=== PATIENT | male | born 1930 | race Caucasian/White ===

== ENCOUNTER 2019-05-01 16:57 | Observation (INO) ==
[2019-05-01] MEDS ORDERED: Isovue-370 500 ML BOTTLE IVP ONE (17:45)
[2019-05-01 18:22] LABS: Bilirubin,Urine Small (Negative); Blood,Urine Trace (Negative); Clarity,Urine Cloudy (Clear); Color,Urine Yellow (Yellow); Glucose,Urine (UA) Normal (Normal); Ketones,Urine Trace mg/dL (Negative); Leukocyte Esterase,Urine Negative (Negative); Nitrite,Urine Negative (Negative); Protein,Urine Trace mg/dL (Neg-Trace); Urobilinogen,Urine Normal (Normal)
[2019-05-01 18:23] LABS: Bacteria,Urine None Seen per hpf (None-Few); Hyaline Casts,Urine None Seen per lpf (None-Few); Squamous Epithelial Cell,Urine Moderate per lpf (None-Few); WBC,Urine 0-3 per hpf (0-3)
[2019-05-01 18:39] LABS: Basophils % 0.2 %; Eosinophils # 0.1 K/mcL (0.0-0.6); Eosinophils % 0.8 %; Hematocrit 41.3 % (37.5-50.1); Hemoglobin 14.5 g/dL (12.9-16.9); Immature Granulocytes % 0.6 % (0-4); Lymphocytes % 15.2 %; Mean Corpuscular HGB Conc 35.1 g/dL (31.6-35.5); Mean Corpuscular Hemoglobin 34.8 pg (28.0-33.3); Mean Platelet Volume 8.9 fL (9.4-12.4); Monocytes # 0.6 K/mcL (0.0-1.3); Monocytes % 8.7 %; Neutrophils # 4.8 K/mcL (1.6-8.9); Platelet Count 206 K/mcL (140-400); Red Blood Count 4.17 M/mcL (4.19-5.50); Red Cell Distribution Width 12.6 % (11.5-14.5); Segmented Neutrophils % 74.5 %; White Blood Count 6.5 K/mcL (4.3-11.1)
[2019-05-01 18:40] LABS: Mucus,Urine Few per lpf (Few)
[2019-05-01 18:59] LABS: BUN/Creatinine Ratio 18 (6-26); Blood Urea Nitrogen 25 mg/dL (8-23); Calcium 9.4 mg/dL (8.6-10.3); Carbon Dioxide 28 mEq/L (23-29); Chloride 106 mEq/L (98-107); Glucose 131 mg/dL (70-105); Magnesium 2.4 mg/dL (1.6-2.6); Osmolality,Calculated 300 (280-300); Sodium 142 mEq/L (136-145); Troponin I < 0.03 ng/mL (< 0.04); eGFR For African Americans 58 (> 60); eGFR For Non-African Americans 48 (> 60)
[2019-05-01] MEDS ORDERED: 0.9 % Sodium Chloride 1,000 ML IVC ONE (20:49)
[2019-05-01 21:22] LABS: Thyroid Stimulating Hormone 2.546 mcIU/mL (0.340-5.600)
[2019-05-02] MEDS ORDERED: Ondansetron ODT 4 MG TAB.RAPDIS SL PRN (02:04)
[2019-05-02] MEDS ORDERED: Acetaminophen 325 MG TABLET PO PRN (02:04)
[2019-05-02] MEDS ORDERED: Naloxone 0.4 MG/ML INJ IVP PRN (02:04)
[2019-05-02] MEDS ORDERED: 0.9 % Sodium Chloride 1,000 ML IVC SCH ×3 (02:15→13:30)
[2019-05-02 05:25] LABS: Basophils % 0.2 %; Eosinophils # 0.1 K/mcL (0.0-0.6); Eosinophils % 2.2 %; Hematocrit 41.4 % (37.5-50.1); Hemoglobin 14.3 g/dL (12.9-16.9); Immature Granulocytes % 0.2 % (0-4); Lymphocytes # 1.5 K/mcL (0.6-4.6); Lymphocytes % 25.3 %; Mean Corpuscular HGB Conc 34.5 g/dL (31.6-35.5); Mean Corpuscular Hemoglobin 35.4 pg (28.0-33.3); Mean Corpuscular Volume 102.5 fL (83.0-100.0); Mean Platelet Volume 9.1 fL (9.4-12.4); Monocytes # 0.5 K/mcL (0.0-1.3); Monocytes % 8.1 %; Neutrophils # 3.8 K/mcL (1.6-8.9); Platelet Count 189 K/mcL (140-400); Red Blood Count 4.04 M/mcL (4.19-5.50); Red Cell Distribution Width 12.6 % (11.5-14.5); White Blood Count 5.9 K/mcL (4.3-11.1)
[2019-05-02 05:46] LABS: BUN/Creatinine Ratio 17 (6-26); Blood Urea Nitrogen 20 mg/dL (8-23); Calcium 8.5 mg/dL (8.6-10.3); Carbon Dioxide 22 mEq/L (23-29); Chloride 110 mEq/L (98-107); Glucose 92 mg/dL (70-105); Osmolality,Calculated 292 (280-300); Sodium 140 mEq/L (136-145); eGFR For African Americans > 60 (> 60); eGFR For Non-African Americans 59 (> 60)
[2019-05-02 05:47] LABS: Troponin I < 0.03 ng/mL (< 0.04)
[2019-05-03 02:31] LABS: Basophils % 0.4 %; Eosinophils # 0.2 K/mcL (0.0-0.6); Eosinophils % 2.8 %; Hematocrit 39.6 % (37.5-50.1); Hemoglobin 13.7 g/dL (12.9-16.9); Immature Granulocytes % 0.2 % (0-4); Lymphocytes # 1.2 K/mcL (0.6-4.6); Lymphocytes % 22.8 %; Mean Corpuscular HGB Conc 34.6 g/dL (31.6-35.5); Mean Corpuscular Hemoglobin 34.7 pg (28.0-33.3); Mean Corpuscular Volume 100.3 fL (83.0-100.0); Mean Platelet Volume 9.7 fL (9.4-12.4); Monocytes # 0.4 K/mcL (0.0-1.3); Monocytes % 7.4 %; Neutrophils # 3.6 K/mcL (1.6-8.9); Platelet Count 193 K/mcL (140-400); Red Blood Count 3.95 M/mcL (4.19-5.50); Red Cell Distribution Width 12.5 % (11.5-14.5); Segmented Neutrophils % 66.4 %; White Blood Count 5.4 K/mcL (4.3-11.1)
[2019-05-03 02:48] LABS: BUN/Creatinine Ratio 16 (6-26); Blood Urea Nitrogen 19 mg/dL (8-23); Calcium 8.7 mg/dL (8.6-10.3); Carbon Dioxide 24 mEq/L (23-29); Chloride 105 mEq/L (98-107); Glucose 94 mg/dL (70-105); Osmolality,Calculated 288 (280-300); Potassium 3.7 mEq/L (3.5-5.1); Sodium 138 mEq/L (136-145); eGFR For African Americans > 60 (> 60); eGFR For Non-African Americans 56 (> 60)
[2019-05-03 10:53] VITALS: BP 149/86
== END 2019-05-03 14:18 | disposition home or self-care (01) ==
LOC: EMEROOARM 16:57 → 3BNU 16:57
PROVIDERS: ADMIT Internal Medicine; ATTEND Internal Medicine

== ENCOUNTER 2019-05-03 20:12 | Observation (INO) ==
[2019-05-03 21:00] LABS: INR 1.1; Prothrombin Time 12.3 Seconds (9.4-12.1)
[2019-05-03 21:03] LABS: Basophils % 0.2 %; Eosinophils # 0.1 K/mcL (0.0-0.6); Eosinophils % 1.1 %; Hematocrit 44.1 % (37.5-50.1); Hemoglobin 15.1 g/dL (12.9-16.9); Immature Granulocytes % 0.4 % (0-4); Mean Corpuscular HGB Conc 34.2 g/dL (31.6-35.5); Mean Corpuscular Hemoglobin 35.4 pg (28.0-33.3); Mean Corpuscular Volume 103.5 fL (83.0-100.0); Mean Platelet Volume 9.1 fL (9.4-12.4); Monocytes # 0.4 K/mcL (0.0-1.3); Monocytes % 7.7 %; Neutrophils # 3.9 K/mcL (1.6-8.9); Platelet Count 203 K/mcL (140-400); Red Blood Count 4.26 M/mcL (4.19-5.50); Red Cell Distribution Width 12.8 % (11.5-14.5); Segmented Neutrophils % 72.6 %; White Blood Count 5.3 K/mcL (4.3-11.1)
[2019-05-03 21:20] LABS: Bilirubin,Urine Negative (Negative); Blood,Urine Small (Negative); Clarity,Urine Clear (Clear); Color,Urine Yellow (Yellow); Glucose,Urine (UA) Normal (Normal); Ketones,Urine Negative (Negative); Leukocyte Esterase,Urine Negative (Negative); Nitrite,Urine Negative (Negative); PH,Urine 6.5 pH Units (5.0-8.0); Protein,Urine Negative (Neg-Trace); Specific Gravity,Urine 1.007 (1.010-1.025); Urobilinogen,Urine Normal (Normal)
[2019-05-03 21:21] LABS: Bacteria,Urine None Seen per hpf (None-Few); Hyaline Casts,Urine None Seen per lpf (None-Few); RBC,Urine 0-3 per hpf (0-3); Squamous Epithelial Cell,Urine Moderate per lpf (None-Few); WBC,Urine 0-3 per hpf (0-3)
[2019-05-03 21:32] LABS: Amphetamine Screen,Urine Negative ng/mL (Cutoff=1000); Barbiturate Screen,Urine Negative ng/mL (Cutoff=200); Benzodiazepines Screen,Urine Negative ng/mL (Cutoff=200); Cannabinoid Screen,Urine Negative ng/mL (Cutoff = 50); Cocaine Screen,Urine Negative ng/mL (Cutoff= 300); Opiate Screen,Urine Negative ng/mL (Cutoff=300); Phencyclidine Screen,Urine Negative ng/mL (Cutoff=25)
[2019-05-03 22:19] LABS: Alanine Aminotransferase 10 Units/L (7-52); Albumin 4.2 g/dL (3.5-5.7); Albumin/Globulin Ratio 1.6 (1.1-2.2); Alkaline Phosphatase 61 Units/L (34-104); Aspartate Amino Transferase 17 Units/L (13-39); BUN/Creatinine Ratio 13 (6-26); Bilirubin,Direct 0.1 mg/dL (0.0-0.2); Bilirubin,Indirect 0.6 mg/dL (0.0-1.0); Bilirubin,Total 0.7 mg/dL (0.3-1.0); Blood Urea Nitrogen 19 mg/dL (8-23); Calcium 9.5 mg/dL (8.6-10.3); Carbon Dioxide 25 mEq/L (23-29); Chloride 104 mEq/L (98-107); Ethanol < 10 mg/dL (Less than 10); Globulin 2.6 g/dL (2.4-3.5); Glucose 145 mg/dL (70-105); Osmolality,Calculated 289 (280-300); Potassium 3.8 mEq/L (3.5-5.1); Sodium 137 mEq/L (136-145); Total Protein 6.8 g/dL (6.4-8.9); Troponin I < 0.03 ng/mL (< 0.04); eGFR For African Americans 55 (> 60); eGFR For Non-African Americans 45 (> 60)
[2019-05-03] MEDS ORDERED: 0.9 % Sodium Chloride 1,000 ML IVC ONE (23:23)
[2019-05-04] MEDS ORDERED: Naloxone 0.4 MG/ML INJ IVP PRN (00:46)
[2019-05-04] MEDS ORDERED: 0.9 % Sodium Chloride 1,000 ML IVC SCH (01:00)
[2019-05-04 04:49] LABS: Hematocrit 40.8 % (37.5-50.1); Hemoglobin 13.8 g/dL (12.9-16.9); Mean Corpuscular HGB Conc 33.8 g/dL (31.6-35.5); Mean Corpuscular Hemoglobin 34.8 pg (28.0-33.3); Mean Corpuscular Volume 102.8 fL (83.0-100.0); Mean Platelet Volume 9.4 fL (9.4-12.4); Platelet Count 169 K/mcL (140-400); Red Blood Count 3.97 M/mcL (4.19-5.50); Red Cell Distribution Width 12.7 % (11.5-14.5); White Blood Count 5.7 K/mcL (4.3-11.1)
[2019-05-04 05:03] LABS: BUN/Creatinine Ratio 15 (6-26); Blood Urea Nitrogen 18 mg/dL (8-23); Calcium 8.5 mg/dL (8.6-10.3); Carbon Dioxide 24 mEq/L (23-29); Chloride 107 mEq/L (98-107); Glucose 101 mg/dL (70-105); Osmolality,Calculated 294 (280-300); Potassium 3.7 mEq/L (3.5-5.1); Sodium 141 mEq/L (136-145); eGFR For African Americans > 60 (> 60); eGFR For Non-African Americans 56 (> 60)
[2019-05-04 09:40] LABS: Folate 9.1 ng/mL (3.0-16.0)
[2019-05-04] MEDS ORDERED: Cyanocobalamin (B-12) 1,000 MCG/ML VIAL IM ONE (14:16)
[2019-05-04] MEDS: Folic Acid 1 MG TABLET PO SCH (14:43)
[2019-05-04] MEDS: *HR* Heparin 5,000 UNIT/ML VIAL SQ SCH (17:10)
[2019-05-05 04:47] LABS: Hematocrit 41.5 % (37.5-50.1); Hemoglobin 14.2 g/dL (12.9-16.9); Mean Corpuscular HGB Conc 34.2 g/dL (31.6-35.5); Mean Corpuscular Hemoglobin 35.1 pg (28.0-33.3); Mean Corpuscular Volume 102.5 fL (83.0-100.0); Mean Platelet Volume 9.5 fL (9.4-12.4); Platelet Count 189 K/mcL (140-400); Red Blood Count 4.05 M/mcL (4.19-5.50); Red Cell Distribution Width 12.7 % (11.5-14.5); White Blood Count 5.4 K/mcL (4.3-11.1)
[2019-05-05 04:59] LABS: BUN/Creatinine Ratio 14 (6-26); Blood Urea Nitrogen 16 mg/dL (8-23); Calcium 8.6 mg/dL (8.6-10.3); Carbon Dioxide 24 mEq/L (23-29); Chloride 108 mEq/L (98-107); Glucose 84 mg/dL (70-105); Osmolality,Calculated 288 (280-300); Potassium 3.9 mEq/L (3.5-5.1); Sodium 139 mEq/L (136-145); eGFR For African Americans > 60 (> 60); eGFR For Non-African Americans 59 (> 60)
[2019-05-05] MEDS: *HR* Heparin 5,000 UNIT/ML VIAL SQ SCH ×2 (06:01→16:48)
[2019-05-05] MEDS ORDERED: 0.9 % Sodium Chloride 1,000 ML IVC ONE ×2 (07:48→12:35)
[2019-05-05] MEDS: Folic Acid 1 MG TABLET PO SCH (08:26)
[2019-05-05] MEDS: Cyanocobalamin (B-12) 1,000 MCG TABLET PO SCH (08:26)
[2019-05-06 02:01] LABS: Basophils % 0.4 %; Eosinophils # 0.1 K/mcL (0.0-0.6); Eosinophils % 2.8 %; Hematocrit 38.7 % (37.5-50.1); Hemoglobin 13.3 g/dL (12.9-16.9); Immature Granulocytes % 0.2 % (0-4); Lymphocytes # 1.2 K/mcL (0.6-4.6); Lymphocytes % 24.1 %; Mean Corpuscular HGB Conc 34.4 g/dL (31.6-35.5); Mean Corpuscular Hemoglobin 35.1 pg (28.0-33.3); Mean Corpuscular Volume 102.1 fL (83.0-100.0); Mean Platelet Volume 9.3 fL (9.4-12.4); Monocytes # 0.4 K/mcL (0.0-1.3); Monocytes % 8.7 %; Neutrophils # 3.2 K/mcL (1.6-8.9); Platelet Count 183 K/mcL (140-400); Red Blood Count 3.79 M/mcL (4.19-5.50); Red Cell Distribution Width 12.6 % (11.5-14.5); Segmented Neutrophils % 63.8 %; White Blood Count 4.9 K/mcL (4.3-11.1)
[2019-05-06 02:24] LABS: BUN/Creatinine Ratio 12 (6-26); Blood Urea Nitrogen 14 mg/dL (8-23); Calcium 8.5 mg/dL (8.6-10.3); Carbon Dioxide 24 mEq/L (23-29); Chloride 110 mEq/L (98-107); Glucose 89 mg/dL (70-105); Osmolality,Calculated 290 (280-300); Potassium 3.9 mEq/L (3.5-5.1); Sodium 140 mEq/L (136-145); eGFR For African Americans > 60 (> 60); eGFR For Non-African Americans 58 (> 60)
[2019-05-06] MEDS: *HR* Heparin 5,000 UNIT/ML VIAL SQ SCH (05:20)
[2019-05-06] MEDS: Cyanocobalamin (B-12) 1,000 MCG TABLET PO SCH (09:01)
[2019-05-06] MEDS: Folic Acid 1 MG TABLET PO SCH (09:01)
[2019-05-06] MEDS: predniSONE 20 MG TABLET PO SCH (16:01)
[2019-05-07 02:58] LABS: Basophils % 0.4 %; Eosinophils # 0.1 K/mcL (0.0-0.6); Eosinophils % 2.7 %; Hematocrit 40.6 % (37.5-50.1); Hemoglobin 13.9 g/dL (12.9-16.9); Immature Granulocytes % 0.2 % (0-4); Lymphocytes # 1.2 K/mcL (0.6-4.6); Lymphocytes % 23.6 %; Mean Corpuscular HGB Conc 34.2 g/dL (31.6-35.5); Mean Corpuscular Volume 102.3 fL (83.0-100.0); Mean Platelet Volume 9.5 fL (9.4-12.4); Monocytes # 0.4 K/mcL (0.0-1.3); Monocytes % 7.2 %; Neutrophils # 3.4 K/mcL (1.6-8.9); Platelet Count 177 K/mcL (140-400); Red Blood Count 3.97 M/mcL (4.19-5.50); Red Cell Distribution Width 12.7 % (11.5-14.5); Segmented Neutrophils % 65.9 %; White Blood Count 5.2 K/mcL (4.3-11.1)
[2019-05-07 03:20] LABS: BUN/Creatinine Ratio 14 (6-26); Blood Urea Nitrogen 15 mg/dL (8-23); Calcium 9.2 mg/dL (8.6-10.3); Carbon Dioxide 26 mEq/L (23-29); Chloride 106 mEq/L (98-107); Glucose 89 mg/dL (70-105); Magnesium 2.2 mg/dL (1.6-2.6); Osmolality,Calculated 286 (280-300); Phosphorous 3.5 mg/dL (2.7-4.5); Potassium 3.8 mEq/L (3.5-5.1); Sodium 138 mEq/L (136-145); Troponin I < 0.03 ng/mL (< 0.04); eGFR For African Americans > 60 (> 60); eGFR For Non-African Americans > 60 (> 60)
[2019-05-07] MEDS: Folic Acid 1 MG TABLET PO SCH (08:06)
[2019-05-07] MEDS: predniSONE 20 MG TABLET PO SCH (08:06)
[2019-05-07] MEDS: Cyanocobalamin (B-12) 1,000 MCG TABLET PO SCH (08:06)
[2019-05-07] MEDS ORDERED: Cyanocobalamin (B-12) 1,000 MCG/ML VIAL IM ONE (09:00)
[2019-05-07] MEDS ORDERED: Sennosides/Docusate Sodium TABLET PO SCH (09:30)
[2019-05-07] MEDS ORDERED: Cosyntropin 250 MCG/2 ML VIAL IVP ONE (09:55)
[2019-05-07 12:22] VITALS: BP 120/67
== END 2019-05-07 14:07 | disposition home or self-care (01) ==
LOC: EMEROOARM 20:12 → 3BNU 20:12 → SUATTDRO 23:41 → 3BNU 05-04 00:17
PROVIDERS: ADMIT Internal Medicine; ATTEND Internal Medicine